=== PATIENT | female | born 1980 | race Caucasian/White ===

== ENCOUNTER 2019-06-29 18:30 | Emergency (ER) | payer OTHER ==
[2019-06-29 19:00] VITALS: BP 114/76; PULSE 94; TEMP 98.2; BMI 24.5
[2019-06-29] MEDS ORDERED: ACETAMINOPHEN 325 MG TABLET (FP) PO ONE (21:02)
[2019-06-29] MEDS ORDERED: ACETAMINOPHEN 325 MG TABLET (FP) ONE (21:31)
--- NOTE | 2019-06-29 21:58 | PDOC ---
History of Present Illness - General Chief Complaint: Injury Stated Complaint: FALL Time Seen by Provider: 06/29/19 20:56 History Source: Patient Exam Limitations: No Limitations Past History - Past Medical History Allergies/Adverse Reactions: Allergies Allergy/AdvReac Type Severity Reaction Status Date / Time No Known Allergies Allergy Verified 06/29/19 21:30 Home Medications: Ambulatory Orders Mupirocin Ointment [Bactroban 2% Ointment -] 1 applic TP TID #1 applic 06/29/19 COPD: No - Immunization History Immunization Up to Date: Yes - Psycho Social/Smoking Cessation Hx Smoking History: Never smoked Information on smoking cessation initiated: No Hx Alcohol Use: No Drug/Substance Use Hx: No *Physical Exam - Vital Signs Last Vital Signs Temp Pulse Resp BP Pulse Ox 98.2 F 94 H 17 114/76 100 06/29/19 18:55 06/29/19 18:55 06/29/19 18:55 06/29/19 18:55 06/29/19 18:55 - Physical Exam General Appearance: No: Apparent Distress HEENT: positive: EOMI, MALIK, Other (mild TTP along nasal bone, no nasal bone deformity, lower lip slightly swollen, honey crusted appearing lesions below nose, along chin and on lower lip, no lacerations, no other trauma noted) Neck: positive: Supple. negative: Rigid, Tender midline Respiratory/Chest: positive: Lungs Clear, Normal Breath Sounds. negative: Respiratory Distress Cardiovascular: positive: Regular Rhythm, Regular Rate, S1, S2. negative: Murmur Gastrointestinal/Abdominal: positive: Normal Bowel Sounds, Soft. negative: Tender, Distended, Guarding, Rebound Neurologic: positive: recording studio intern II-XII NML intact, Fully Oriented, Alert, Normal Mood/ Affect, Motor Strength 5/5 ED Treatment Course - RADIOLOGY Radiology Studies Ordered: Category Date Time Status FACIAL BONES CT W/O CONTRAST [CT] Stat CT Scan 06/29/19 21:[address] WITHOUT CONTRAST [CT] Stat CT Scan 06/29/19 21:20 Taken - Medications Given in the ED: ED Medications Discontinued Medications Generic Name Dose Route Start Last Admin Trade Name Freq PRN Reason Stop Dose Admin Acetaminophen 975 mg 06/29/19 21:02 06/29/19 21:32 Tylenol - PO 06/29/19 21:03 975 mg ONCE ONE Administration Medical Decision Making - Medical Decision Making 39-year-old female with no significant past medical history presents status post mechanical fall 2 days ago. Patient states she tripped over while getting into her car and landed face down on a concrete ground. Mentions she has been having headaches which are mainly frontal in origin since the fall along with slight nasal congestion. Also has mild nausea. Denies LOC, vomiting, numbness/ tingling/weakness of the extremities, visual/gait changes. CT head negative CT facial bones with no fracture; slight L maxillary sinus thickening noted Patient feeling better after Tylenol Stable for dc 06/29/19 22:56 Discharge - Discharge Information Problems reviewed: Yes Clinical Impression/Diagnosis: Post-traumatic headache Qualifiers: Headache chronicity pattern: acute headache Intractability: not intractable Qualified Code(s): G44.319 - Acute post-traumatic headache, not intractable Condition: Stable Disposition: HOME - Admission No - Additional Discharge Information Prescriptions: Mupirocin Ointment [Bactroban 2% Ointment -] 1 applic TP TID #1 applic Prescription Drug Monitoring Program (I-STOP) results: I-STOP not reviewed - Follow up/Referral Referrals: ON STAFF,NOT [Primary Care Provider] - - Patient Discharge Instructions Patient Printed Discharge Instructions: DI for Post-traumatic Headache Additional Instructions: Thank you for choosing [facility]. It was a pleasure taking care of you. You may take Tylenol 650 mg every 6 hours by mouth as needed for mild to moderate pain. Take Motrin with food. Use ointment as directed for 5 days Use saline nasal spray/Nedi-pot for congestion Return to the Emergency Department if your symptoms worsen or persist or have other concerning symptoms. - Post Discharge Activity
== END 2019-06-29 23:09 | disposition home or self-care (01) ==
LOC: JER 18:30
DX: G44.319 Acute post-traumatic headache, not intractable (principal); W18.39XD Other fall on same level, subsequent encounter; Y93.9 Activity, unspecified; Y92.9 Unspecified place or not applicable
CPT/HCPCS: 70450-TC; 70486-TC; 99282-25